=== PATIENT | female | born 1980 | race Two or more races ===

== ENCOUNTER 2017-05-17 05:04 | Inpatient (IN) | payer SELFPAY ==
[~2017-05-17] VITALS: Ht 167 cm; Wt 80.3 kg
[2017-05-17] VITALS (9 sets, daily range): BP systolic 118–140; BP diastolic 71–80
[2017-05-17] MEDS ORDERED: IV RINGERS,LACTATED 1000ML 1,000 ML IV SCH (05:15)
[2017-05-17] MEDS ORDERED: CITRIC ACID/SODIUM CITRATE 30 ML SOLUTION. PO ONE (05:30)
[2017-05-17 05:57] LABS: BILIRUBIN,URINE NEGATIVE (NEG); GLUCOSE,URINE NEGATIVE (NEG); NITRITE,URINE NEGATIVE (NEG); PH,URINE 6.5; PROTEIN,URINE NEGATIVE (NEG-TRACE); UROBILINOGEN,URINE 0.2 mg/dL (0.2 mg/dL)
[2017-05-17 06:03] LABS: HEMATOCRIT 35.3 % (36.0-47.0); HEMOGLOBIN 11.7 g/dL (12.0-15.5); RED BLOOD COUNT 3.83 x10^6/uL (3.50-5.40); RED CELL DISTRIBUTION WIDTH 15.3 % (11.5-14.5)
[2017-05-17 06:06] LABS: BACTERIA,URINE FEW /HPF (0-FEW); RBC,URINE OCC /HPF (0-2); SQUAMOUS EPITHELIAL CELL,UR MOD /LPF
[2017-05-17] MEDS ORDERED: OXYTOCIN 10 UNIT/ML VIAL. ONE ×2 (07:14→08:46)
[2017-05-17] MEDS ORDERED: METOCLOPRAMIDE HCL 10 MG/2 ML VIAL. ONE (07:14)
[2017-05-17] MEDS ORDERED: FAMOTIDINE 20 MG/2 ML VIAL ONE (07:14)
[2017-05-17] MEDS ORDERED: fentaNYL PF VIAL 100 MCG/2 ML VIAL ONE (07:14)
[2017-05-17] MEDS ORDERED: ONDANSETRON PF 4 MG/2 ML VIAL. ONE (07:14)
[2017-05-17] MEDS ORDERED: DEXAMETHASONE SOD PHOS 20 MG/5 ML VIAL. ONE (07:14)
[2017-05-17] MEDS ORDERED: MORPHINE PF 5 MG/10 ML VIAL. ONE (07:15)
[2017-05-17] MEDS ORDERED: PHENYLEPHRINE in 0.9% NACL PF 1 MG/10 ML DISP.SYRIN. IV ONE (07:21)
[2017-05-17] MEDS ORDERED: ePHEDrine PF IN SALINE 50 MG/5 ML DISP.SYRIN IV ONE (07:21)
[2017-05-17] MEDS ORDERED: MAGNESIUM HYDROXIDE 2,400 MG/30 ML ORAL.SUSP. PO PRN (08:00)
[2017-05-17] MEDS ORDERED: ZOLPIDEM 5 MG TABLET. PO PRN (08:00)
[2017-05-17] MEDS ORDERED: OXYTOCIN 30 UNIT/500 ML PREMIX 500 ML IV PRN (08:00)
[2017-05-17] MEDS ORDERED: ONDANSETRON PF 4 MG/2 ML VIAL. IV PRN (08:00)
[2017-05-17] MEDS ORDERED: SIMETHICONE 80 MG TAB.CHEW PO PRN (08:00)
[2017-05-17] MEDS ORDERED: MMR per PROTOCOL. MC PRN (08:00)
[2017-05-17] MEDS: FERROUS SULFATE 325 MG TABLET. PO SCH ×2 (08:00→17:00)
[2017-05-17] MEDS ORDERED: MAG HYDROX/ALUMINUM HYD/SIMETH 30 ML ORAL.SUSP PO PRN (08:00)
[2017-05-17] MEDS ORDERED: 0.9 % SODIUM CHLORIDE 10 ML DISP.SYRIN. IV PRN (08:00)
[2017-05-17] MEDS ORDERED: oxyCODONE/APAP 5/325 1 TAB TABLET PO PRN (08:00)
[2017-05-17] MEDS ORDERED: diphenhydrAMINE ORAL ELIXIR 12.5 MG/5 ML ML PO PRN (08:00)
--- NOTE | 2017-05-17 09:03 | PDOC ---
BRIEF OPERATIVE NOTE Pre-Op Diagnosis TIUP RLTC/S Post-Op Diagnosis Same Procedure Performed RLTC/S Surgeon Carmen Anesthesia Type: Regional Blood Loss 1000cc Specimens Obtained None Findings Dictated Complications None REJI VILLALBA MD May 17, 2017 09:02
[2017-05-17] MEDS ORDERED: miSOPROStol 200MCG TAB 200 MCG TABLET PR ONE (10:15)
[2017-05-17] MEDS: KETOROLAC TROMETHAMINE 30 MG/ML INJ. IV PRN ×2 (10:44→17:06)
[2017-05-17] MEDS: IBUPROFEN 800 MG TABLET. PO SCH ×2 (14:00→22:35)
[2017-05-18] MEDS: oxyCODONE/APAP 5/325 1 TAB TABLET PO PRN ×3 (01:59→19:48)
[2017-05-18 02:16] VITALS: BP 99/65
[2017-05-18 07:58] LABS: BASO # 0.1 x10^3/uL (0.0-0.2); BASO % 1 % (0-3); EOS % 0 % (0-3); HEMATOCRIT 28.7 % (36.0-47.0); HEMOGLOBIN 9.7 g/dL (12.0-15.5); LYMPH # 1.7 x10^3/uL (1.0-4.8); LYMPH % 17 % (24-48); MEAN CORPUSCULAR HEMOGLOBIN 31 pg (25-35); MEAN CORPUSCULAR HGB CONC 34 g/dL (31-37); MEAN CORPUSCULAR VOLUME 93 fL (79-100); MONO % 7 % (0-9); NEUT % 76 % (31-73); PLATELET COUNT 134 x10^3/uL (140-400); RED CELL DISTRIBUTION WIDTH 15.3 % (11.5-14.5); WHITE BLOOD COUNT 9.8 x10^3/uL (4.0-11.0)
[2017-05-18] MEDS: DOCUSATE SODIUM 100 MG CAPSULE. PO PRN (08:23)
[2017-05-18] MEDS: FERROUS SULFATE 325 MG TABLET. PO SCH ×2 (08:23→19:47)
[2017-05-18] MEDS: IBUPROFEN 800 MG TABLET. PO SCH ×2 (08:23→16:45)
[2017-05-18 08:30] VITALS: BP 114/60
[2017-05-18 10:47] LABS: HEMATOCRIT 27.3 % (36.0-47.0); HEMOGLOBIN 9.4 g/dL (12.0-15.5)
[2017-05-18] MEDS ORDERED: AMMONIA AROMATIC 15% INHALANT AMPUL. INH ONE (11:45)
--- NOTE | 2017-05-18 12:45 | PDOC ---
SURGICAL PROGRESS NOTE Subjective Post . Saw patient in office and planned to repair symptomation "umbilical" hernia. Will plan repair in am. Patient and family wish to have this done and understand the ricks etc. They may not want mesh used. Will plan repair in the am. Physical exam shows only hernia at the umbilical area. Vital Signs Vital Signs Date Time Temp Pulse Resp B/P (MAP) Pulse Ox O2 Delivery O2 Flow Rate FiO2 05/18/17 08:30 98.6 74 18 114/60 (78) 95 Room Air 98.6 I&O Intake and Output 05/18/17 07:00 Intake Total 2400 ml Output Total 375 ml Balance 2025 ml Intake Oral 1400 ml IV Total 1000 ml Output Urine Total 375 ml Labs Laboratory Tests Test 05/17/17 05:30 05/17/17 10:55 05/18/17 07:40 05/18/17 10:25 White Blood Count 7.0 x10^3/uL (4.0-11.0) 9.8 x10^3/uL (4.0-11.0) Red Blood Count 3.83 x10^6/uL (3.50-5.40) 3.10 x10^6/uL (3.50-5.40) Hemoglobin 11.7 g/dL (12.0-15.5) 11.0 g/dL (12.0-15.5) 9.7 g/dL (12.0-15.5) 9.4 g/dL (12.0-15.5) Hematocrit 35.3 % (36.0-47.0) 33.0 % (36.0-47.0) 28.7 % (36.0-47.0) 27.3 % (36.0-47.0) Mean Corpuscular Volume 92 fL (79-100) 93 fL (79-100) Mean Corpuscular Hemoglobin 31 pg (25-35) 31 pg (25-35) Mean Corpuscular Hemoglobin Concent 33 g/dL (31-37) 34 g/dL (31-37) 35 g/dL (31-37) Red Cell Distribution Width 15.3 % (11.5-14.5) 15.3 % (11.5-14.5) Platelet Count 173 x10^3/uL (140-400) 134 x10^3/uL (140-400) Urine Collection Type Unknown Urine Color Yellow Urine Clarity Clear Urine pH 6.5 Urine Specific [place] 1.020 Urine Protein Negative mg/dL (NEG-TRACE) Urine Glucose (UA) Negative mg/dL (NEG) Urine Ketones (Stick) Negative mg/dL (NEG) Urine Blood Negative (NEG) Urine Nitrite Negative (NEG) Urine Bilirubin Negative (NEG) Urine Urobilinogen Dipstick 0.2 mg/dL (0.2 mg/dL) Urine Leukocyte Esterase Negative (NEG) Urine RBC Occ /HPF (0-2) Urine WBC 1-4 /HPF (0-4) Urine Squamous Epithelial Cells Mod /LPF Urine Bacteria Few /HPF (0-FEW) Urine Mucus Mod /LPF Neutrophils (%) (Auto) 76 % (31-73) Lymphocytes (%) (Auto) 17 % (24-48) Monocytes (%) (Auto) 7 % (0-9) Eosinophils (%) (Auto) 0 % (0-3) Basophils (%) (Auto) 1 % (0-3) Neutrophils # (Auto) 7.4 x10^3uL (1.8-7.7) Lymphocytes # (Auto) 1.7 x10^3/uL (1.0-4.8) Monocytes # (Auto) 0.7 x10^3/uL (0.0-1.1) Eosinophils # (Auto) 0.0 x10^3/uL (0.0-0.7) Basophils # (Auto) 0.1 x10^3/uL (0.0-0.2) Laboratory Tests Test 05/18/17 07:40 05/18/17 10:25 White Blood Count 9.8 x10^3/uL (4.0-11.0) Red Blood Count 3.10 x10^6/uL (3.50-5.40) Hemoglobin 9.7 g/dL (12.0-15.5) 9.4 g/dL (12.0-15.5) Hematocrit 28.7 % (36.0-47.0) 27.3 % (36.0-47.0) Mean Corpuscular Volume 93 fL (79-100) Mean Corpuscular Hemoglobin 31 pg (25-35) Mean Corpuscular Hemoglobin Concent 34 g/dL (31-37) 35 g/dL (31-37) Red Cell Distribution Width 15.3 % (11.5-14.5) Platelet Count 134 x10^3/uL (140-400) Neutrophils (%) (Auto) 76 % (31-73) Lymphocytes (%) (Auto) 17 % (24-48) Monocytes (%) (Auto) 7 % (0-9) Eosinophils (%) (Auto) 0 % (0-3) Basophils (%) (Auto) 1 % (0-3) Neutrophils # (Auto) 7.4 x10^3uL (1.8-7.7) Lymphocytes # (Auto) 1.7 x10^3/uL (1.0-4.8) Monocytes # (Auto) 0.7 x10^3/uL (0.0-1.1) Eosinophils # (Auto) 0.0 x10^3/uL (0.0-0.7) Basophils # (Auto) 0.1 x10^3/uL (0.0-0.2) KAMALJIT FRIAS MD May 18, 2017 12:45
[2017-05-18 13:18] LABS: RPR REFLEX Non Reactive (Non Reactive)
--- NOTE | 2017-05-18 15:52 | PDOC ---
Provider Note Provider Note Stable DELIVERY Clinical Indications for Procedure (Place 'X' for any and all applicable criteria): Procedure is indicated for ANY ONE of the following 1,2,3: [] I. Emergency delivery indicated by ANY ONE of the following: [] a) Patient unable to undergo vaginal delivery due to comorbidities (eg , severe HTN, heart failure)10 [] b) Placenta or vascular abnormalities (eg, abruption, vaginal bleeding) 11,12 [] c) Failed attempt at operative vaginal delivery 9 [] d) Failure to progress [] e) Severe preeclampsia or HELLP Syndrome [] f) Uterine rupture [] g) distress [] h) Eclampsia [] II. Elective delivery is needed as indicated by ALL of the following: [] a) Maternal, placental, or abnormality is present as indicated by ANY ONE of the following: [] i) Cephalopelvic disproportion [] ii) Previous delivery & ANY ONE of the following 5,13 [] 1) Refusal of trial of labor [] 2) 2 or more prior uterine scars & no prior vaginal [id number] [] 3) Known classic or high uterine scar [] iii) Genital herpes simplex infection & ANY ONE of the [id number] [] 1) Prodromal symptoms (eg, vulvar pain or burning) [] 2) Primary genital herpes simplex infection during semester(1) [] 3) Active genital lesions [] 4) Positive cervical culture within preceding week [] iv) HIV infection and ANY ONE of the following: [] 1) Coinfection with hepatitis C [C] [] 2) HIV RNA viral load greater than 1000 copies per mL(17) [] 3) Untreated HIV infection(1)(17) [] v) Prior abdominal cervical cerclage [] vi) Cervical cancer, including carcinoma in situ [] vii) Obstructive pelvic tumors [] viii) Prior vaginal colporrhaphy [] ix) Placental abnormality (eg, previa, accreta)11 [] x) Multiple gestation [] xi) Polyhydramnios [] xii) macrosomia as indicated by ANY ONE of the following 16,17 [] 1) Estimated wt> 5kg ( 5000g) in nondiabetic woman [] 2) Estimated wt>4.5k (4500g) in diabetic woman [] xiii) Malpresentation & ANY ONE of the following: [] 1) Failure of attempted version [] 2) Refusal of attempted version [] xiv) anomaly (eg, hydrops, conjoined twins) 23 [] xv) Failed induction of labor [] xvi) Previous uterine rupture 13 [] b) Delivery appropriate indicated by ALL of the following: [] i) Adequate lung maturity (eg, according to amniocentesis results) or course of corticosteroids administered(25) [] ii) Sufficient gestational age indicated by ANY ONE of the following: [] 1) Liu of at least 39 0/7 weeks' gestation( 26) [] 2) or maternal complication warrants (less than 37 0/7 weeks' gestation) or early-term delivery[D] (eg, anomaly , maternal cardiac disease) [] 3) Twin or higher order warrants (less than 37 0/7 weeks' gestation) or early-term delivery[D](20) Extended stay beyond goal length of stay may be needed for []a) Anesthesia-related complications []b) Bowel, ureter, or bladder injury []c) Wound complications (eg, seroma, hematoma, or infection) []d) Venous thromboembolism []e) hemorrhage (eg, secondary to placenta accreta or uterine atony) []f) Care for comorbidities The original [employer] content created by [employer] has been revised. The portions of the content which have been revised are identified through the use of italic text or in bold, and [facility] [employer] has neither reviewed nor approved the modified material. All other unmodified content is copyright [facility] [employer]. Please see references footnoted in the original [facility] [employer] edition 2016 CBC - BMP 05/18/17 07:40 05/18/17 10:25 no complaints dressing CDI FU in AM REJI VILLALBA MD May 18, 2017 15:52
[2017-05-18] MEDS ORDERED: AMMONIA AROMATIC 15% INHALANT AMPUL. ONE (16:50)
[2017-05-18 18:59] VITALS: BP 110/56
[2017-05-18 23:30] VITALS: BP 112/59
[2017-05-19] MEDS: oxyCODONE/APAP 5/325 1 TAB TABLET PO PRN ×3 (02:27→19:57)
[2017-05-19] MEDS: IBUPROFEN 800 MG TABLET. PO SCH ×2 (02:27→15:46)
[2017-05-19 05:40] VITALS: BP 98/61
[2017-05-19] MEDS ORDERED: fentaNYL PF VIAL 100 MCG/2 ML VIAL IV PRN ×2 (07:00)
[2017-05-19] MEDS ORDERED: IV RINGERS,LACTATED 1000ML 1,000 ML IV SCH (07:00)
[2017-05-19] MEDS ORDERED: PROCHLORPERAZINE 10 MG/2 ML VIAL. IV PRN (07:00)
[2017-05-19] MEDS ORDERED: HYDROmorphone 2 MG/ML VIAL IV PRN (07:00)
[2017-05-19] MEDS ORDERED: LIDOCAINE 1% 1 ML SYRINGE. ID PRN (07:00)
[2017-05-19] MEDS ORDERED: ONDANSETRON PF 4 MG/2 ML VIAL. IV PRN ×2 (07:00→11:30)
[2017-05-19] MEDS ORDERED: MORPHINE SULFATE 2 MG/ML DISP.SYRIN. IV PRN (07:00)
[2017-05-19] MEDS ORDERED: BUPIVACAINE-EPI 0.5%-1:200000 50 ML VIAL. ONE (07:21)
[2017-05-19] MEDS: FERROUS SULFATE 325 MG TABLET. PO SCH (08:00)
[2017-05-19] MEDS ORDERED: DESFLURANE 61 TO 120 MINUTES IH ONE (08:32)
[2017-05-19] MEDS ORDERED: MIDAZOLAM HCL/PF 2 MG/2 ML VIAL. ONE ×2 (08:33→10:32)
[2017-05-19] MEDS ORDERED: GLYCOPYRROLATE 1 MG/5 ML VIAL. ONE ×3 (08:33→10:34)
[2017-05-19] MEDS ORDERED: fentaNYL PF VIAL 100 MCG/2 ML VIAL ONE ×3 (08:33→10:55)
[2017-05-19] MEDS ORDERED: LIDOCAINE 2% PF Vial for OR 5 ML VIAL. ONE ×2 (08:33→10:33)
[2017-05-19] MEDS ORDERED: PROPOFOL 0 ML IV ONE (08:33)
[2017-05-19] MEDS ORDERED: NEOSTIGMINE METHYLSULFATE 5 MG/5 ML SYRINGE. ONE ×3 (08:33→10:34)
[2017-05-19] MEDS ORDERED: SUCCINYLCHOLINE 200 MG/10 ML VIAL. ONE (08:33)
[2017-05-19] MEDS ORDERED: ROCURONIUM 50 MG/5 ML VIAL. ONE ×3 (08:33→10:34)
[2017-05-19] MEDS ORDERED: DEXAMETHASONE SOD PHOS 20 MG/5 ML VIAL. ONE ×2 (08:33→10:33)
[2017-05-19] MEDS ORDERED: KETOROLAC 30 MG/ML INJ FOR OR. INJ ONE (08:34)
[2017-05-19] MEDS ORDERED: ONDANSETRON PF 4 MG/2 ML VIAL. ONE ×2 (08:34→10:33)
[2017-05-19 08:46] LABS: ALBUMIN/GLOBULIN RATIO 0.6 (1.0-1.7); CALCIUM 8.3 mg/dL (8.5-10.1); CREATININE 0.7 mg/dL (0.6-1.0); GFR 94.7; POTASSIUM 3.7 mmol/L (3.5-5.1); TOTAL BILIRUBIN 0.6 mg/dL (0.2-1.0); TOTAL PROTEIN 5.6 g/dL (6.4-8.2)
--- NOTE | 2017-05-19 09:49 | PDOC ---
SURGICAL PROGRESS NOTE Subjective Op Note: Surgeon...........................................Ren Pre and post op diag.........................incarcerated umbilical hernia Anesthesia......................................general Procedure.......................................Repair incarcerated umbilical hernia Drains............................................none Fluids............................................see anesthesia sheet Blood loss.....................................15cc Condition.......................................Satisfactory Vital Signs Vital Signs Date Time Temp Pulse Resp B/P (MAP) Pulse Ox O2 Delivery O2 Flow Rate FiO2 05/19/17 08:25 98.3 73 16 140/68 99 Room Air 98.3 I&O Intake and Output 05/19/17 06:59 Intake Total 800 ml Output Total 3550 ml Balance -2750 ml Intake Oral 800 ml Output Urine Total 3550 ml Labs Laboratory Tests Test 05/17/17 10:55 05/18/17 07:40 05/18/17 10:25 05/19/17 07:50 Hemoglobin 11.0 g/dL (12.0-15.5) 9.7 g/dL (12.0-15.5) 9.4 g/dL (12.0-15.5) Hematocrit 33.0 % (36.0-47.0) 28.7 % (36.0-47.0) 27.3 % (36.0-47.0) White Blood Count 9.8 x10^3/uL (4.0-11.0) Red Blood Count 3.10 x10^6/uL (3.50-5.40) Mean Corpuscular Volume 93 fL (79-100) Mean Corpuscular Hemoglobin 31 pg (25-35) Mean Corpuscular Hemoglobin Concent 34 g/dL (31-37) 35 g/dL (31-37) Red Cell Distribution Width 15.3 % (11.5-14.5) Platelet Count 134 x10^3/uL (140-400) Neutrophils (%) (Auto) 76 % (31-73) Lymphocytes (%) (Auto) 17 % (24-48) Monocytes (%) (Auto) 7 % (0-9) Eosinophils (%) (Auto) 0 % (0-3) Basophils (%) (Auto) 1 % (0-3) Neutrophils # (Auto) 7.4 x10^3uL (1.8-7.7) Lymphocytes # (Auto) 1.7 x10^3/uL (1.0-4.8) Monocytes # (Auto) 0.7 x10^3/uL (0.0-1.1) Eosinophils # (Auto) 0.0 x10^3/uL (0.0-0.7) Basophils # (Auto) 0.1 x10^3/uL (0.0-0.2) Sodium Level 142 mmol/L (136-145) Potassium Level 3.7 mmol/L (3.5-5.1) Chloride Level 108 mmol/L (98-107) Carbon Dioxide Level 25 mmol/L (21-32) Anion Gap 9 (6-14) Blood Urea Nitrogen 12 mg/dL (7-20) Creatinine 0.7 mg/dL (0.6-1.0) Estimated GFR (Cockcroft-Gault) 94.7 BUN/Creatinine Ratio 17 (6-20) Glucose Level 76 mg/dL (70-99) Calcium Level 8.3 mg/dL (8.5-10.1) Total Bilirubin 0.6 mg/dL (0.2-1.0) Aspartate Amino Transf (AST/SGOT) 23 U/L (15-37) Alanine Aminotransferase (ALT/SGPT) 11 U/L (14-59) Alkaline Phosphatase 165 U/L (46-116) Total Protein 5.6 g/dL (6.4-8.2) Albumin 2.0 g/dL (3.4-5.0) Albumin/Globulin Ratio 0.6 (1.0-1.7) Laboratory Tests Test 05/18/17 10:25 05/19/17 07:50 Hemoglobin 9.4 g/dL (12.0-15.5) Hematocrit 27.3 % (36.0-47.0) Mean Corpuscular Hemoglobin Concent 35 g/dL (31-37) Sodium Level 142 mmol/L (136-145) Potassium Level 3.7 mmol/L (3.5-5.1) Chloride Level 108 mmol/L (98-107) Carbon Dioxide Level 25 mmol/L (21-32) Anion Gap 9 (6-14) Blood Urea Nitrogen 12 mg/dL (7-20) Creatinine 0.7 mg/dL (0.6-1.0) Estimated GFR (Cockcroft-Gault) 94.7 BUN/Creatinine Ratio 17 (6-20) Glucose Level 76 mg/dL (70-99) Calcium Level 8.3 mg/dL (8.5-10.1) Total Bilirubin 0.6 mg/dL (0.2-1.0) Aspartate Amino Transf (AST/SGOT) 23 U/L (15-37) Alanine Aminotransferase (ALT/SGPT) 11 U/L (14-59) Alkaline Phosphatase 165 U/L (46-116) Total Protein 5.6 g/dL (6.4-8.2) Albumin 2.0 g/dL (3.4-5.0) Albumin/Globulin Ratio 0.6 (1.0-1.7) KAMALJIT FRIAS MD May 19, 2017 09:49
[2017-05-19] MEDS ORDERED: ePHEDrine PF IN SALINE 50 MG/5 ML DISP.SYRIN IV ONE (10:21)
[2017-05-19] MEDS ORDERED: SEVOFLURANE > 120 MINUTES. IH ONE (10:32)
[2017-05-19] MEDS ORDERED: PROPOFOL 20 ML IV ONE (10:33)
[2017-05-19] MEDS ORDERED: MAGNESIUM HYDROXIDE 2,400 MG/30 ML ORAL.SUSP. PO PRN (11:30)
[2017-05-19] MEDS ORDERED: 0.9 % SODIUM CHLORIDE 10 ML DISP.SYRIN. IV PRN (11:30)
[2017-05-19] MEDS ORDERED: oxyCODONE/APAP 5/325 1 TAB TABLET PO PRN (11:30)
[2017-05-19] MEDS ORDERED: POTASSIUM CL 20MEQ-0.45% NACL 1,000 ML IV SCH (12:00)
[2017-05-19 12:22] VITALS: BP 144/60
[2017-05-19 12:40] VITALS: BP 115/67
[2017-05-19] MEDS: DOCUSATE SODIUM 100 MG CAPSULE. PO SCH (12:40)
[2017-05-19 13:00] VITALS: BP 112/72
--- NOTE | 2017-05-19 14:11 | PDOC ---
Provider Note Provider Note Doing well VSS Incision CDI FU in AM REJI VILLALBA MD May 19, 2017 14:11
[2017-05-19] MEDS: BENZOCAINE/MENTHOL LOZENGE. PO PRN ×2 (15:46→21:46)
[2017-05-19] MEDS ORDERED: FAMOTIDINE 20 MG/2 ML VIAL IVP SCH (21:00)
[2017-05-19] MEDS: DOCUSATE SODIUM 100 MG CAPSULE. PO PRN (21:47)
[2017-05-19 23:04] VITALS: BP 119/69
[2017-05-20] MEDS: oxyCODONE/APAP 5/325 1 TAB TABLET PO PRN ×3 (04:27→14:38)
[2017-05-20 05:30] VITALS: BP 118/67
[2017-05-20 06:57] LABS: BASO % 0 % (0-3); EOS % 1 % (0-3); HEMATOCRIT 25.2 % (36.0-47.0); HEMOGLOBIN 8.4 g/dL (12.0-15.5); LYMPH # 1.6 x10^3/uL (1.0-4.8); LYMPH % 15 % (24-48); MEAN CORPUSCULAR HEMOGLOBIN 31 pg (25-35); MEAN CORPUSCULAR HGB CONC 33 g/dL (31-37); MEAN CORPUSCULAR VOLUME 93 fL (79-100); MONO % 6 % (0-9); NEUT % 77 % (31-73); PLATELET COUNT 158 x10^3/uL (140-400); WHITE BLOOD COUNT 10.4 x10^3/uL (4.0-11.0)
[2017-05-20 07:14] LABS: CALCIUM 8.2 mg/dL (8.5-10.1); CREATININE 0.6 mg/dL (0.6-1.0); GFR 113.1; POTASSIUM 3.6 mmol/L (3.5-5.1)
[2017-05-20] MEDS: DOCUSATE SODIUM 100 MG CAPSULE. PO SCH (09:20)
[2017-05-20] MEDS: FERROUS SULFATE 325 MG TABLET. PO SCH (09:21)
--- NOTE | 2017-05-20 13:00 | PDOC3 ---
OB DISCHARGE SUMMARY DATE OF ADMISSION: 05/17/17 DATE OF DISCHARGE: 05/20/17 REASON FOR ADMISSION: section PROCEDURES: None INTRAPARTUM PROCEDURES: Spontanous Vag Deliv PROCEDURES: Others (Hernia repair) OPERATIONS: None DISCHARGE DIAGNOSIS: Term Delivered DISCHARGE INFORMATION: Activity, Diet HOSPITAL COURSE Unremarkable CONDITION AT DISCHARGE Stable REJI VILLALBA MD May 20, 2017 13:00
[2017-05-20] MEDS ORDERED: OXYC-323 PO (13:03)
[2017-05-20] MEDS ORDERED: NAPR500T PO (13:03)
[2017-05-20 14:29] VITALS: BP 112/68
[2017-05-20] MEDS: IBUPROFEN 800 MG TABLET. PO SCH (14:37)
[2017-05-20 17:27] VITALS: BP 110/68
--- NOTE | 2017-05-20 18:00 | PATHOLOGY ---
PATHOLOGY REPORT * * * * * * * * FINAL DIAGNOSIS: Segment of focal mesothelial-lined fibromembranous and fibroadipose tissue, abdominal hernia repair: - Hernia sac and contents showing focal chronic inflammation and stromal decidual change. (JPM:mgr; 05/20/2017) REPORT ELECTRONICALLY SIGNED BY: Feliberto Maier M.D. DATE/TIME: 05/20/2017 17:59 * * * * * * * * GROSS PATHOLOGY: Received in formalin labeled "Davie Severino, hernia sac and contents," is a piece of purple hickey membranous tissue measuring 5.5 x 3.4 x 1.2 cm. No nodules or lesions are identified. Taxonomist tissue is submitted in cassette A1. (JPM; 05/19/17) INITIAL CPT CODE(S): A; 47971 Professional services performed [place] [facility] [place] [address] Technical services performed by [facility] at [address] [place] [address], [address], [place] [address]. SPECIMEN(S) RECEIVED: A.Hernia sac and contents CLINICAL HISTORY: Incarcerated umbilical hernia PATIENT: DAVIE PRESTON /AGE: 705/18/1980 (Age: 37) PATIENT #: [id number] ALT CASE #: SPECIMEN COLLECTION DATE: 05/19/2017 SPECIMEN RECEIVED DATE: 05/19/2017 [facility] - [address] [place] [address] - PHONE: [phone] * * * END OF REPORT * * *
== END 2017-05-20 20:00 | disposition home or self-care (01) | DRG 765 ==
LOC: 3 SO LND 05:04 → 3 NORTH 11:08
PROVIDERS: ADMIT Specialist; ATTEND Specialist
PROC: 10D00Z1 Extraction of Products of Conception, Low, Open Approach (ICD-10-PCS; principal; 2017-05-17)
PROC: 0WQF0ZZ Repair Abdominal Wall, Open Approach (ICD-10-PCS; 2017-05-17)
DX: O99.62 Diseases of the digestive system complicating childbirth (principal); K42.0 Umbilical hernia with obstruction, without gangrene; Z37.0 Single live birth; Z3A.40 40 weeks gestation of pregnancy
CPT/HCPCS: 36415; 80048; 80053; 81001; 85014; 85018; 85027; 86593; 86850; 86900; 86901; 88302; A4215; C1887; J0330; J0690; J1100; J1885; J2001; J2250; J2270; J2370; J2405; J2590; J2704; J2710; J2765; J3010; J3490; J7120; S0028